=== PATIENT | male | born 1995 | race Caucasian/White ===

== ENCOUNTER 2017-09-03 14:20 | Emergency (ER) | payer MEDICAID, OTHER ==
[2017-09-03] MEDS: CEFAZOLIN 1 GM INJ IM (15:11)
[2017-09-03] MEDS: HYDROCODONE/APAP (5/325) TAB PO (15:11)
[2017-09-03] MEDS: LIDOCAINE 1% (MDV) 10 ML INJ INJ (15:11)
[2017-09-03] MEDS: DIPHTH/TET/ACEL PERTUSS (ADULT) 0.5 ML VIAL IM* (15:13)
== END 2017-09-03 17:48 | disposition home or self-care (01) ==
LOC: E/R 14:20
DX: S41.112A Laceration without foreign body of left upper arm, initial encounter (principal); X99.9XXA Assault by unspecified sharp object, initial encounter; Y92.9 Unspecified place or not applicable; Z23 Encounter for immunization
CPT/HCPCS: 12002; 73060; 90471; 90715; 96372; 99284-25